=== PATIENT | male | born 1960 | race Caucasian/White ===

== ENCOUNTER → 2024-12-23 09:31 | Outpatient (BNVA) | payer OTHER, SELFPAY | PROVIDERS: PCP Electrodiagnostic Medicine; Visit Provider Podiatrist Foot & Ankle Surgery | DX: M79.671 Pain in right foot (principal); M25.571 Pain in right ankle and joints of right foot | CPT/HCPCS: 73630 ==

== ENCOUNTER → 2025-02-03 07:56 | Outpatient (BNVA) | payer OTHER, SELFPAY | PROVIDERS: PCP Electrodiagnostic Medicine; Visit Provider Podiatrist Foot & Ankle Surgery | DX: L60.3 Nail dystrophy (principal); B35.1 Tinea unguium | CPT/HCPCS: 36415; 80053 ==